=== PATIENT | male | born 1985 | race Caucasian/White ===

== ENCOUNTER 2017-03-29 11:16 | Emergency (ER) | payer BC ==
[~2017-03-29] VITALS: Ht 180.3 cm; Wt 83.2 kg
[2017-03-29 12:36] VITALS: BP 115/74
== END 2017-03-29 12:37 | disposition home or self-care (01) ==
LOC: EME 11:16
DX: A53.9 Syphilis, unspecified (principal)
CPT/HCPCS: 99281; 99283; J0561

== ENCOUNTER 2017-04-07 14:17 | Emergency (ER) | payer BC ==
[~2017-04-07] VITALS: Ht 180.3 cm; Wt 87.2 kg
[2017-04-07 16:14] VITALS: BP 122/66
== END 2017-04-07 16:15 | disposition home or self-care (01) ==
LOC: EME 14:17
DX: A53.9 Syphilis, unspecified (principal)
CPT/HCPCS: 99281; 99283; J0561